=== PATIENT | male | born 1980 | race Two or more races ===

== ENCOUNTER 2018-08-08 13:56 | Emergency (ER) | payer MEDICARE, MEDICAID ==
[~2018-08-08] VITALS: Ht 175.3 cm; Wt 74.4 kg
--- NOTE | 2018-08-08 14:00 | NUR ---
CAME IN FOR HEADACHE SINCE THIS AM. TO ER BED 9, HOOKED TO MONITOR, AWAITING MD BENSON
--- NOTE | 2018-08-08 14:13 | NUR ---
DR ROCA AT BEDSIDE
--- NOTE | 2018-08-08 14:37 | NUR ---
Patient discharged to home in stable condition. Written and verbal after care instructions given. Patient verbalizes understanding of instruction.
[2018-08-08 14:41] VITALS: BP 122/75
== END 2018-08-08 14:42 | disposition home or self-care (01) ==
LOC: ER 13:56
DX: R51 Headache (principal); J34.89 Other specified disorders of nose and nasal sinuses; F17.200 Nicotine dependence, unspecified, uncomplicated; Z88.1 Allergy status to other antibiotic agents; Z88.6 Allergy status to analgesic agent